=== PATIENT | male | born 2000 | race Hispanic/Latino ===

== ENCOUNTER 2024-12-11 18:35 | Emergency (ER) | payer BC, SELFPAY ==
[2024-12-11 18:47] VITALS: BP 123/68; PULSE 113; RESP 20; TEMP 37.5; O2SAT 100
[2024-12-11] MEDS: ONDANSETRON HCL ODT 4 MG TABLET 8 MG SUBLINGUAL (19:04)
[2024-12-11 19:16] LABS: EDCOVIDSCREEN Negative (Negative); EDINFLUASCREEN Negative (Negative); EDINFLUBSCREEN Negative (Negative)
--- NOTE | 2024-12-12 08:06 | ED.NAVMDI ---
HPI - Nausea/Vomiting/Diarrhea General Chief complaint: Nausea/Vomiting/Diarrhea Stated complaint: Nausea, vomiting Time Seen by Provider: 12/11/24 19:10 Source: patient and RN notes reviewed Mode of arrival: ambulatory Limitations: no limitations History of Present Illness HPI Narrative: 24-year-old male patient presents today complaining of nausea, vomiting, fatigue, body aches. Nausea began around 10:00 a.m. and patient had 2 vomiting episodes around noon. He has been able to keep some fluids since the vomiting episodes. Reports he has not had anything to eat since 2300 last night. Denies fever, diarrhea, abdominal pain. No OTC treatment prior to arrival. Patient works in a [employer]. Related Data Allergies Allergy/AdvReac Type Severity Reaction Status Date / Time No Known Allergies Allergy Verified 12/11/24 18:59 PMFSH Comments At time of signature, I have reviewed and agree with nursing past medical, surgical, social and family history unless otherwise noted. Please see nursing chart for further information. There is no relevant family history pertinent to the presenting complaint Exam Narrative: GENERAL: Mildly ill-appearing, well-nourished, and in no acute distress. HEAD: Normocephalic, atraumatic. EYES: EOMI. No redness or drainage. Conjunctivae normal. ENT: Mucous membranes pink and moist. NECK: Normal AROM. CHEST: No respiratory distress. Clear to auscultation. HEART: Regular rate and rhythm. No murmur appreciated. Normal peripheral pulses. ABDOMEN: Soft, nontender, nondistended, normal active bowel sounds. EXTREMITIES: Normal range of motion. No edema. SKIN: Warm, dry, no rash. Capillary refill normal. Normal skin turgor. NEURO: No focal deficits. Alert and oriented x3. Gait steady. PSYCH: Normal affect. No signs of depression or anxiety. Course Course Emergency Course: Patient feeling much better after 8 mg of Zofran. Level of Care: Express Care Visit Vital Signs Vital signs: Vital Signs Temperature 99.5 F 12/11/24 18:47 Pulse Rate 113 H 12/11/24 18:47 Respiratory Rate 20 12/11/24 18:47 Blood Pressure 123/68 12/11/24 18:47 Pulse Oximetry 100 12/11/24 18:47 Oxygen Delivery Room Air 12/11/24 18:47 Temperature 99.5 F 12/11/24 18:47 Pulse Rate 113 H 12/11/24 18:47 Respiratory Rate 20 12/11/24 18:47 Blood Pressure 123/68 12/11/24 18:47 Pulse Oximetry 100 12/11/24 18:47 Oxygen Delivery Room Air 12/11/24 18:47 Reviewed MDM - Nausea/Vomiting/Diarrhea MDM Narrative Medical decision making narrative: 24-year-old male patient presents today complaining of nausea, vomiting, fatigue, body aches. Nausea began around 10:00 a.m. and patient had 2 vomiting episodes around noon. He has been able to keep some fluids since the vomiting episodes. Reports he has not had anything to eat since 2300 last night. No OTC treatment prior to arrival. Upon exam, patient is mildly ill appearing, but otherwise normal. Abdominal exam is benign. Patient feeling much better after ODT Zofran. Bedside glucose 105. Negative COVID and influenza test. Symptoms likely viral in etiology. Discussed [id number] medication use and duration of illness. Prescription for Zofran sent to pharmacy. Anticipatory guidance given. Strict ED precautions given. Vital signs stable. Differential Diagnosis Differential diagnosis: Likely food poisoning, gastroenteritis, dehydration and other (Hypoglycemia) Lab Data Attestation: I reviewed the patient's lab results. Labs: Lab Results 12/11/24 12/11/24 Range/Units 18:58 19:26 POC Capillary Glucose 105 (65-105) mg/dl POC Influenza A Ag Negative (Negative) POC Influenza B Ag Negative (Negative) POC SARS CoV-2 Ag Negative (Negative) Critical Care Time Critical Care Time Critical Care Time: No Discharge Plan Discharge Clinical Impression: Viral syndrome Patient Disposition: Home Condition: Stable Instructions: Dehydration (DC), Acute Nausea and Vomiting (DC) Additional Instructions: Your COVID-19 and influenza swabs are negative. Your symptoms are likely due to a viral illness. Please take the Zofran as prescribed for your nausea and vomiting. Stay with fluids today and advance your diet as tolerated tomorrow, starting with bland foods such as crackers or toast. As discussed, if symptoms worsen such as severe abdominal pain, fever, or uncontrolled vomiting, please go to the ER immediately for further evaluation and treatment. Patient Language: Burmese Prescriptions: New ondansetron 8 mg tablet,disintegrating 8 mg PO Q4-6H PRN (Reason: nausea and vomiting) Qty: 20 0RF Follow-up/Referrals: UNKNOWN,DOCTOR [Primary Care Provider] Stand Alone Forms: Work/School Release IP Time of Disposition: 19:35
== END 2024-12-11 19:40 | disposition home or self-care (01) ==
PROVIDERS: Emergency Provider Nurse Practitioner
DX: B34.9 Viral infection, unspecified (principal); Z20.822 Contact with and (suspected) exposure to COVID-19
CPT/HCPCS: 82948; 87426; 87804; 99203; A9270; G0463